=== PATIENT | male | born 1985 | race African-American/Black ===

== ENCOUNTER 2017-11-30 08:32 | Emergency (ER) | payer SELFPAY ==
[~2017-11-30] VITALS: Ht 172.7 cm; Wt 94.3 kg
[2017-11-30 08:38] VITALS: Ht 172.7 cm; Wt 94.3 kg
[2017-11-30 09:30] VITALS: BP 155/94
== END 2017-11-30 09:31 | disposition home or self-care (01) ==
LOC: ED 08:32
DX: R11.2 Nausea with vomiting, unspecified (principal); R10.9 Unspecified abdominal pain; Z88.0 Allergy status to penicillin
CPT/HCPCS: Q0162

== ENCOUNTER 2018-01-05 07:54 | Emergency (ER) | payer SELFPAY ==
[~2018-01-05] VITALS: Ht 172.7 cm; Wt 93.5 kg
[2018-01-05 09:27] VITALS: BP 174/101
== END 2018-01-05 09:27 | disposition home or self-care (01) ==
LOC: ED 07:54
DX: J02.9 Acute pharyngitis, unspecified (principal); J45.909 Unspecified asthma, uncomplicated; Z88.0 Allergy status to penicillin